=== PATIENT | female | born 1975 | race Caucasian/White ===

== ENCOUNTER 2018-10-22 18:39 | Emergency (ER) | payer BC ==
[2018-10-22 19:43] VITALS: TEMP 98
[2018-10-22 21:15] VITALS: RESP 18
[2018-10-22] MEDS ORDERED: ONDANSETRON 4 MG/2 ML VIAL IVP STA (21:18)
[2018-10-22] MEDS ORDERED: KETOROLAC 30 MG/ML 1 ML VIAL IVP STA (21:18)
[2018-10-22] MEDS ORDERED: SODIUM CHLORIDE 0.9% 1,000 ML IV STA (21:18)
[2018-10-22] MEDS ORDERED: HYDROmorphone 0.5 MG/0.5 ML SYRINGE IVP STA (21:18)
--- NOTE | 2018-10-22 21:35 | ED ---
Abdominal Pain HPI - General Chief Complaint: Abdominal Pain Stated Complaint: Poss appendicitis Time Seen by Provider: 10/22/18 20:19 Source: patient Mode of arrival: ambulatory Limitations: no limitations - History of Present Illness Initial Comments: 43-year-old female patient presents to the emergency department today for evaluation of right lower quadrant abdominal pain. Patient states this started this afternoon around 4:30. States that she did have some mild intermittent pain a couple of days ago but it completely resolved. Patient states that this pain today is sharp, stabbing, and tends. Patient states that radiates into the right groin into the right anterior thigh. States it does worsen with movement and pressing over the area. States that she has been chilled but denies fever. Denies any nausea or vomiting. Denies any hematuria, dysuria, urinary frequency, urinary urgency. States that she does have constipation generally. Denies any history of abdominal surgery. Patient denies any recent rash, shortness breath, chest pain, back pain, numbness, tingling, dizziness, weakness, headache, visual changes, or any other complaints. - Related Data Home Medications Medication Instructions Recorded Confirmed buPROPion XL [Wellbutrin Xl] 150 mg PO DAILY 10/22/18 10/22/18 Previous Rx's Medication Instructions Recorded Ibuprofen [Motrin] 600 mg PO Q8HR PRN #30 tab 10/22/18 Ondansetron [Zofran ODT] 4 mg PO Q8HR PRN #10 tab 10/22/18 Allergies Allergy/AdvReac Type Severity Reaction Status Date / Time No Known Allergies Allergy Verified 10/22/18 20:13 Review of Systems ROS Statement: Those systems with pertinent positive or pertinent negative responses have been documented in the HPI. ROS Other: All systems not noted in ROS Statement are negative. Past Medical History Past Medical History: No Reported History History of Any Multi-Drug Resistant Organisms: None Reported Past Surgical History: Tonsillectomy, Tubal Ligation, Uterine Ablation Past Psychological History: Depression Smoking Status: Former smoker Past Alcohol Use History: None Reported Past Drug Use History: Marijuana General Exam Limitations: no limitations General appearance: alert, in no apparent distress, other (Physical well- developed, well-nourished adult female patient in no acute distress. Vital signs upon presentation are temperature 98.0F, pulse 80, respirations 16, blood pressure 120/82, pulse ox 100% on room air.) Eye exam: Present: normal appearance, PERRL, EOMI. Absent: scleral icterus, conjunctival injection, periorbital swelling ENT exam: Present: normal exam, normal oropharynx, mucous membranes moist Respiratory exam: Present: normal lung sounds bilaterally. Absent: respiratory distress, wheezes, rales, rhonchi, stridor Cardiovascular Exam: Present: regular rate, normal rhythm, normal heart sounds. Absent: systolic murmur, diastolic murmur, rubs, gallop, clicks GI/Abdominal exam: Present: soft, tenderness (Right lower quadrant tenderness), normal bowel sounds. Absent: distended, guarding, rebound, rigid Back exam: Present: normal inspection. Absent: CVA tenderness (R), CVA tenderness (L) Neurological exam: Present: alert, oriented X3, CN II-XII intact Psychiatric exam: Present: normal affect, normal mood Skin exam: Present: warm, dry, intact, normal color. Absent: rash Course Vital Signs 10/22/18 10/22/18 10/22/18 19:40 21:00 22:30 Temperature 98 F Pulse Rate 80 69 92 Respiratory 16 18 18 Rate Blood Pressure 120/82 105/70 100/61 O2 Sat by Pulse 100 99 100 Oximetry Medical Decision Making - Medical Decision Making 43-year-old female patient presented to the emergency department today for evaluation of right lower quadrant abdominal pain. Physical examination did reveal right lower quadrant tenderness. No CVA tenderness. Labs reviewed and did reveal mildly elevated white blood cell count at 10.9. Given concern for appendicitis. Did perform CT abdomen and pelvis with contrast. Did review this result and showed no evidence for acute appendicitis. There was however evidence for multiple cystic lesions to the bilateral adnexa and possible uterine fibroid. Did discuss this finding with the patient. She does have an history of endometriosis there is concern that this could be related. She'll be discharged to follow-up with her search marketing specialist for further evaluation. She' ll be given anti-inflammatory pain medication nausea medication as a prescription. Return parameters were discussed in detail. She verbalizes understanding and agrees this plan. - Lab Data Result diagrams: 10/22/18 20:20 10/22/18 20:20 Lab Results 10/22/18 10/22/18 10/22/18 Range/Units 20:20 20:20 20:20 WBC 10.9 H (3.8-10.6) k/uL RBC 4.56 (3.80-5.40) m/uL Hgb 13.6 (11.4-16.0) gm/dL Hct 41.5 (34.0-46.0) % MCV 91.0 (80.0-100.0) fL MCH 29.9 (25.0-35.0) pg MCHC 32.8 (31.0-37.0) g/dL RDW 12.4 (11.5-15.5) % Plt Count 191 (150-450) k/uL Neutrophils % 77 % Lymphocytes % 17 % Monocytes % 3 % Eosinophils % 1 % Basophils % 1 % Neutrophils # 8.3 H (1.3-7.7) k/uL Lymphocytes # 1.8 (1.0-4.8) k/uL Monocytes # 0.3 (0-1.0) k/uL Eosinophils # 0.1 (0-0.7) k/uL Basophils # 0.1 (0-0.2) k/uL Sodium 139 (137-145) mmol/L Potassium 3.9 (3.5-5.1) mmol/L Chloride 105 (98-107) mmol/L Carbon Dioxide 23 (22-30) mmol/L Anion Gap 11 mmol/L BUN 17 (7-17) mg/dL Creatinine 0.86 (0.52-1.04) mg/dL Est GFR (CKD-EPI)AfAm >90 (>60 ml/min/1.73 sqM) Est GFR (CKD-EPI)NonAf 85 (>60 ml/min/1.73 sqM) Glucose 90 (74-99) mg/dL Plasma Lactic Acid Moses 1.6 (0.7-2.0) mmol/L Calcium 9.2 (8.4-10.2) mg/dL Total Bilirubin 0.5 (0.2-1.3) mg/dL AST 21 (14-36) U/L ALT 26 (9-52) U/L Alkaline Phosphatase 70 (38-126) U/L Total Protein 8.0 (6.3-8.2) g/dL Albumin 4.6 (3.5-5.0) g/dL Amylase 105 (30-110) U/L Lipase 92 (23-300) U/L Urine Color Urine Appearance (Clear) Urine pH (5.0-8.0) Ur Specific [place] (1.001-1.035) Urine Protein (Negative) Urine Glucose (UA) (Negative) Urine Ketones (Negative) Urine Blood (Negative) Urine Nitrite (Negative) Urine Bilirubin (Negative) Urine Urobilinogen (<2.0) mg/dL Ur Leukocyte Esterase (Negative) 10/22/18 Range/Units 21:40 WBC (3.8-10.6) k/uL RBC (3.80-5.40) m/uL Hgb (11.4-16.0) gm/dL Hct (34.0-46.0) % MCV (80.0-100.0) fL MCH (25.0-35.0) pg MCHC (31.0-37.0) g/dL RDW (11.5-15.5) % Plt Count (150-450) k/uL Neutrophils % % Lymphocytes % % Monocytes % % Eosinophils % % Basophils % % Neutrophils # (1.3-7.7) k/uL Lymphocytes # (1.0-4.8) k/uL Monocytes # (0-1.0) k/uL Eosinophils # (0-0.7) k/uL Basophils # (0-0.2) k/uL Sodium (137-145) mmol/L Potassium (3.5-5.1) mmol/L Chloride (98-107) mmol/L Carbon Dioxide (22-30) mmol/L Anion Gap mmol/L BUN (7-17) mg/dL Creatinine (0.52-1.04) mg/dL Est GFR (CKD-EPI)AfAm (>60 ml/min/1.73 sqM) Est GFR (CKD-EPI)NonAf (>60 ml/min/1.73 sqM) Glucose (74-99) mg/dL Plasma Lactic Acid Moses (0.7-2.0) mmol/L Calcium (8.4-10.2) mg/dL Total Bilirubin (0.2-1.3) mg/dL AST (14-36) U/L ALT (9-52) U/L Alkaline Phosphatase (38-126) U/L Total Protein (6.3-8.2) g/dL Albumin (3.5-5.0) g/dL Amylase (30-110) U/L Lipase (23-300) U/L Urine Color Yellow Urine Appearance Clear (Clear) Urine pH 5.5 (5.0-8.0) Ur Specific [place] 1.025 (1.001-1.035) Urine Protein Negative (Negative) Urine Glucose (UA) Negative (Negative) Urine Ketones 2+ H (Negative) Urine Blood Negative (Negative) Urine Nitrite Negative (Negative) Urine Bilirubin Negative (Negative) Urine Urobilinogen <2.0 (<2.0) mg/dL Ur Leukocyte Esterase Negative (Negative) - Radiology Data Radiology results: report reviewed, image reviewed CT abdomen and pelvis with contrast was obtained. Report was reviewed in its entirety. Impression by Dr. Meneses shows no evidence for bowel obstruction or definitive focal inflammation. No evidence for appendicitis. Heterogenous uterus with nonspecific peripheral cystic lesion. Query fibroids. Bilateral adnexal cystic present, possibly functional/physiologic. There is also mild free fluid in the pelvis which could be physiologic. Disposition Clinical Impression: Ovarian cyst, Pelvic pain Disposition: HOME SELF-CARE Condition: Good Instructions (If sedation given, give patient instructions): Ovarian Cyst (ED) , Pelvic Pain in Women (ED) Additional Instructions: Take medications as directed. Follow-up with your search marketing specialist for further evaluation as soon as possible. Return to the emergency department immediately for any new, worsening, or concerning symptoms. Prescriptions: Ibuprofen [Motrin] 600 mg PO Q8HR PRN #30 tab PRN Reason: Pain Ondansetron [Zofran ODT] 4 mg PO Q8HR PRN #10 tab PRN Reason: Nausea Is patient prescribed a controlled substance at d/c from ED?: No Referrals: None,Stated [Primary Care Provider] - 1-2 days Time of Disposition: 23:19
[2018-10-22 21:38] LABS: Basophils # (A) 0.1 k/uL (0-0.2); Basophils % (A) 1 %; Eosinophils # (A) 0.1 k/uL (0-0.7); Eosinophils % (A) 1 %; HCT 41.5 % (34.0-46.0); HGB 13.6 gm/dL (11.4-16.0); Lymphocytes # (A) 1.8 k/uL (1.0-4.8); Lymphocytes % (A) 17 %; MCH 29.9 pg (25.0-35.0); MCHC 32.8 g/dL (31.0-37.0); Mean Platelet Volume 7.8; Monocytes # (A) 0.3 k/uL (0-1.0); Monocytes % (A) 3 %; Neutrophils # (A) 8.3 k/uL (1.3-7.7); Neutrophils % (A) 77 %; Platelet Count 191 k/uL (150-450); RBC 4.56 m/uL (3.80-5.40); RDW 12.4 % (11.5-15.5); WBC 10.9 k/uL (3.8-10.6)
[2018-10-22 21:47] LABS: ALT 26 U/L (9-52); AST 21 U/L (14-36); Albumin 4.6 g/dL (3.5-5.0); Alkaline Phosphatase 70 U/L (38-126); Amylase 105 U/L (30-110); Anion Gap 11 mmol/L; Blood Urea Nitrogen 17 mg/dL (7-17); Calcium 9.2 mg/dL (8.4-10.2); Carbon Dioxide 23 mmol/L (22-30); Chloride 105 mmol/L (98-107); Glucose 90 mg/dL (74-99); Lipase 92 U/L (23-300); Potassium 3.9 mmol/L (3.5-5.1); Sodium 139 mmol/L (137-145); Total Bilirubin 0.5 mg/dL (0.2-1.3)
[2018-10-22 21:49] LABS: Appearance,Urine Clear (Clear); Bilirubin,Urine Negative (Negative); Blood,Urine Negative (Negative); Color,Urine Yellow; Glucose,Urine (UA) Negative (Negative); Ketones,Urine 2+ (Negative); Leukocyte Esterase,Urine Negative (Negative); Nitrite,Urine Negative (Negative); PH, Urine 5.5 (5.0-8.0); Protein,Urine Negative (Negative); Specific Gravity,Urine 1.025 (1.001-1.035); Urobilinogen,Urine <2.0 mg/dL (<2.0)
--- NOTE | 2018-10-22 22:33 | CT ---
EXAM: CT Abdomen and Pelvis With Intravenous Contrast CLINICAL HISTORY: ITS.REASON CT Reason: abdominal pain TECHNIQUE: Axial computed tomography images of the abdomen and pelvis with intravenous contrast. CTDI is 7.3 mGy and DLP is 598.9 mGy-cm. This CT exam was performed using one or more of the following dose reduction techniques: automated exposure control, adjustment of the mA and/or kV according to patient size, and/or use of iterative reconstruction technique. Coronal and sagittal reformatted images were created and reviewed. COMPARISON: No relevant prior studies available. FINDINGS: Lung bases: Unremarkable. No mass. No consolidation. ABDOMEN: Liver: Unremarkable. No mass. Gallbladder and bile ducts: Unremarkable. No calcified stones. No ductal dilation. Pancreas: Unremarkable. No mass. No ductal dilation. Spleen: Unremarkable. No splenomegaly. Adrenals: Unremarkable. No mass. Kidneys and ureters: Left renal cyst measuring 7 mm. No hydronephrosis on either side. Stomach and bowel: Moderate colonic stool. No evidence for focal colonic inflammation. The small bowel demonstrates normal course and caliber. A few nonspecific central fluid levels are present which may be transient. Stomach is mostly contracted, limitedly characterized. No mucosal thickening. PELVIS: Appendix: No findings to suggest acute appendicitis. Bladder: Unremarkable. No mass. Reproductive: Bilateral adnexal cystic lesions, one with slight peripheral enhancement on the right which may represent a corpus albicans measuring 13 mm. Dominant left ovarian cyst noted measuring 2.4 cm. Small adnexal calcifications are present. There is slight heterogeneity of the uterus with cystic focus extending into the left cornu measuring 17 mm. ABDOMEN and PELVIS: Intraperitoneal space: Mild pelvic free fluid. No free air. Bones/joints: No acute fracture. No dislocation. Soft tissues: Unremarkable. Vasculature: Unremarkable. No abdominal aortic aneurysm. Lymph nodes: Unremarkable. No enlarged lymph nodes. IMPRESSION: 1. No evidence for bowel obstruction or definitive focal inflammation. No evidence for appendicitis. 2. Heterogeneous uterus with nonspecific peripheral cystic lesion. Query fibroids. Bilateral adnexal cysts are present, possibly functional/physiologic. There is also mild free fluid in the pelvis which could be physiologic.
[2018-10-22 22:41] VITALS: BP 100/61; PULSE 92
[2018-10-22] MEDS ORDERED: ACET/COD 300 MG/30 MG STARTER PACK 6 TAB BTL PO STA (23:18)
[2018-10-22] MEDS ORDERED: IBUPROFEN 600 MG STARTER PACK 4 TAB BTL PO STA (23:18)
== END 2018-10-22 23:33 | disposition home or self-care (01) ==
LOC: EC 18:39
DX: N83.202 Unspecified ovarian cyst, left side (principal); N83.201 Unspecified ovarian cyst, right side; F32.9 Major depressive disorder, single episode, unspecified; Z79.899 Other long term (current) drug therapy; Z87.891 Personal history of nicotine dependence
CPT/HCPCS: 36415; 74177; 80053; 81003; 82150; 83605; 83690; 85025; 87040; 96361; 96374; 96375; 99284

== ENCOUNTER → 2022-05-10 | Outpatient (CLI) | payer OTHER ==
[2022-05-10 13:51] VITALS: BP 127/82; PULSE 76; RESP 17; TEMP 97.8
--- NOTE | 2022-05-10 14:07 | P.GSHP ---
History of Present Illness H&P Date: 05/10/22 Chief Complaint: intraductal papilloma Kina is a 47 year old white female seen in consultation for Dr. Guerrero regarding the radiographic abnormality in her right breast. [place] [address] after which additional views of the right breast were recommended. No lesions of concern were noted in the left breast. [place] [address], as well as an ultrasound of the right breast. Completion of workup revealed a 7 x 4 mm ill- defined solid lesion at the 6:00 retrograde area over area of the right breast as well as some cystic changes. The solid lesion was recommended for core biopsy was performed was performed and [address]21 and pathology revealed an intraductal papilloma. The patient does feel any lumps masses or nodules of concern. She is not complaining of any nipple discharge or skin changes. She has not had any recent trauma or infection in the breast. She had a right mole removed from the right breast in the remote past which was not cancer. Caffeine: 2 cups/day nicotine; none chocolate: occasional BCP: depoprovera for 11 years, until 2018 then she had a hysterectomy took both ovaries done for endometriosis hormones: takes estradial pill since hysterectomy Family History: none for cancer Hormonal History: menarche: 14 , age at first : 22; breast fed: yes EAMON: 44, on estradiol done for endometirosis Surgical history: uterine ablation and tubaligation prior to hysterectomy Total abdominal hysterectomy Left carpal tunnel Tonsillectomy Medical History: ? asthma Social History: nicotine: none alcohol: none drugs: Marijuana weekly; recreation - Constitutional Constitutional: Denies chills, Denies fever - EENT Eyes: denies blurred vision, denies pain Ears: deny: decreased hearing, tinnitus Ears, nose, mouth and throat: Denies headache, Denies sore throat - Breasts Breasts: bilateral: as per HPI - Cardiovascular Cardiovascular: Denies chest pain, Denies shortness of breath - Respiratory Respiratory: Reports as per HPI - Gastrointestinal Gastrointestinal: Reports constipation, Denies abdominal pain, Denies diarrhea, Denies nausea, Denies vomiting - Genitourinary (Female) Genitourinary: Denies dysuria, Denies hematuria - Menstruation Menstruation: Reports post hysterectomy - Musculoskeletal Musculoskeletal: Denies myalgias - Integumentary Integumentary: Denies pruritus, Denies rash - Neurological Neurological: Denies numbness, Denies weakness - Psychiatric Psychiatric: Reports anxiety, Denies depression - Endocrine Endocrine: Denies fatigue, Denies weight change - Hematologic/Lymphatic Comment: none - Allergic/Immunologic Allergic/Immunologic: Reports seasonal allergies Past Medical History Past Medical History: No Reported History History of Any Multi-Drug Resistant Organisms: None Reported Past Surgical History: Hysterectomy, Tonsillectomy, Tubal Ligation, Uterine Ablation Past Anesthesia/Blood Transfusion Reactions: No Reported Reaction Past Psychological History: Depression Smoking Status: Former smoker Past Alcohol Use History: None Reported Past Drug Use History: Marijuana Medications and Allergies Home Medications Medication Instructions Recorded Confirmed Type buPROPion XL [Wellbutrin Xl] 150 mg PO DAILY 10/22/18 05/10/22 History estradioL [Estradiol] 0.05 mg PO DAILY 05/10/22 05/10/22 History Allergies Allergy/AdvReac Type Severity Reaction Status Date / Time No Known Allergies Allergy Verified 05/10/22 13:45 Surgical - Exam Vital Signs Temp Pulse Resp BP Pulse Ox 97.8 F 76 17 127/82 98 05/10/22 13:46 05/10/22 13:46 05/10/22 13:46 05/10/22 13:46 05/10/22 13:46 BMI: 25.7 - General no distress - Eyes normal ocular movement - Neck trachea midline - Respiratory normal respiratory effort, clear to auscultation - Cardiovascular Rhythm: regular Heart Sounds: normal: S1, S2 - Abdomen Abdomen: soft, non tender, no guarding, no rigid, no rebound - Integumentary normal turgor - Neurologic no disoriented, no combative - Musculoskeletal normal gait - Psychiatric oriented to time, oriented to person, oriented to place, speech is normal, memory intact Breast Exam: BRA: 34B Inspection: Bilateral grade 2 ptosis Palpation: Right breast: Multi-positional exam fibrocystic changes no discrete dominant masses or nodules of concern Right axilla: No adenopathy of concern Left breast: Multiple positional exam fibrocystic changes no dominant masses or nodules of concern Left axilla: No adenopathy of concern Results Mammogram and ultrasound reviewed with Dr. Gonzalez, 7 mm area in the retroareolar region on the right with biopsy-proven intraductal papilloma Assessment and Plan Assessment: Impression: Fibrocystic breast changes Biopsy-proven intraductal papilloma right retroareolar region Plan: Right breast needle localization lumpectomy, possible onco-plastic tissue transfer Risks and benefits of the procedure discussed with the patient and her . Risks include but are not limited to bleeding, infection, reaction to the anesthetic. The possibility of the needle slipping and not getting the correct areas also discussed. They understand and wish to proceed. CC: DR. Guerrero
== END ==
LOC: WWCWWP 13:41
PROVIDERS: ATTEND Surgery
DX: N60.11 Diffuse cystic mastopathy of right breast (principal); N60.12 Diffuse cystic mastopathy of left breast; D24.1 Benign neoplasm of right breast; Z87.891 Personal history of nicotine dependence

== ENCOUNTER 2022-07-02 08:07 | Day surgery (SDC) | payer OTHER ==
[2022-06-27 09:01] VITALS: BMI 26.5
--- NOTE | 2022-06-28 16:26 | P.PN ---
Subjective Progress Note Date: 06/28/22 Principal diagnosis: intraductal papilloma Kina is a 47 year old white female seen in consultation for Dr. Guerrero regarding the radiographic abnormality in her right breast. [place] [address] after which additional views of the right breast were recommended. No lesions of concern were noted in the left breast. [place] [address], as well as an ultrasound of the right breast. Completion of workup revealed a 7 x 4 mm ill- defined solid lesion at the 6:00 retrograde area over area of the right breast as well as some cystic changes. The solid lesion was recommended for core biopsy was performed was performed [place] [address]93 and pathology revealed an intraductal papilloma. The patient does feel any lumps masses or nodules of concern. She is not complaining of any nipple discharge or skin changes. She has not had any recent trauma or infection in the breast. She had a right mole removed from the right breast in the remote past which was not cancer. Caffeine: 2 cups/day nicotine; none chocolate: occasional BCP: depoprovera for 11 years, until 2018 then she had a hysterectomy took both ovaries done for endometriosis hormones: takes estradial pill since hysterectomy Family History: none for cancer Hormonal History: menarche: 14 , age at first : 22; breast fed: yes EAMON: 44, on estradiol done for endometirosis Surgical history: uterine ablation and tubaligation prior to hysterectomy Total abdominal hysterectomy Left carpal tunnel Tonsillectomy Medical History: ? asthma Social History: nicotine: none alcohol: none drugs: Marijuana weekly; recreation - Constitutional Constitutional: Denies chills, Denies fever - EENT Eyes: denies blurred vision, denies pain Ears: deny: decreased hearing, tinnitus Ears, nose, mouth and throat: Denies headache, Denies sore throat - Breasts Breasts: bilateral: as per HPI - Cardiovascular Cardiovascular: Denies chest pain, Denies shortness of breath - Respiratory Respiratory: Reports as per HPI - Gastrointestinal Gastrointestinal: Reports constipation, Denies abdominal pain, Denies diarrhea, Denies nausea, Denies vomiting - Genitourinary (Female) Genitourinary: Denies dysuria, Denies hematuria - Menstruation Menstruation: Reports post hysterectomy - Musculoskeletal Musculoskeletal: Denies myalgias - Integumentary Integumentary: Denies pruritus, Denies rash - Neurological Neurological: Denies numbness, Denies weakness - Psychiatric Psychiatric: Reports anxiety, Denies depression - Endocrine Endocrine: Denies fatigue, Denies weight change - Hematologic/Lymphatic Comment: none - Allergic/Immunologic Allergic/Immunologic: Reports seasonal allergies Past Medical History Past Medical History: No Reported History History of Any Multi-Drug Resistant Organisms: None Reported Past Surgical History: Hysterectomy, Tonsillectomy, Tubal Ligation, Uterine Ablation Past Anesthesia/Blood Transfusion Reactions: No Reported Reaction Past Psychological History: Depression Smoking Status: Former smoker Past Alcohol Use History: None Reported Past Drug Use History: Marijuana Medications and Allergies Home Medications Medication Instructions Recorded Confirmed Type buPROPion XL [Wellbutrin Xl] 150 mg PO DAILY 10/22/18 05/10/22 History estradioL [Estradiol] 0.05 mg PO DAILY 05/10/22 05/10/22 History Allergies Allergy/AdvReac Type Severity Reaction Status Date / Time No Known Allergies Allergy Verified 05/10/22 13:45 Objective - Vital Signs Vital signs: Intake & Output 06/27/22 06/28/22 06/28/22 18:59 06:59 18:59 Weight 68.039 kg - Exam BMI 26.6 - Constitutional General appearance: Present: cooperative - EENT Eyes: Present: EOMI ENT: Present: hearing grossly normal - Neck Neck: Present: normal ROM - Respiratory Respiratory: bilateral: CTA - Cardiovascular Heart sounds: normal: S1, S2 - Gastrointestinal General gastrointestinal: Present: soft - Integumentary Integumentary: Present: normal turgor - Musculoskeletal Musculoskeletal: Present: gait normal - Psychiatric Psychiatric: Present: A&O x's 3, appropriate affect, intact judgment & insight - Additional findings Additional findings: Breast Exam: BRA: 34B Inspection: Bilateral grade 2 ptosis Palpation: Right breast: Multi-positional exam fibrocystic changes no discrete dominant masses or nodules of concern Right axilla: No adenopathy of concern Left breast: Multiple positional exam fibrocystic changes no dominant masses or nodules of concern Left axilla: No adenopathy of concern Assessment and Plan Assessment: Results Mammogram and ultrasound reviewed with Dr. Gonzalez, 7 mm area in the retroareolar region on the right with biopsy-proven intraductal papilloma Assessment and Plan Assessment: Impression: Fibrocystic breast changes Biopsy-proven intraductal papilloma right retroareolar region Plan: Right breast needle localization lumpectomy, possible onco-plastic tissue transfer Risks and benefits of the procedure discussed with the patient and her . Risks include but are not limited to bleeding, infection, reaction to the anesthetic. The possibility of the needle slipping and not getting the correct areas also discussed. They understand and wish to proceed. CC: DR. Guerrero Additional CC's: Chandrakant Guerrero
[~2022-07-02 08:07] MED LIST: HEPARIN SODIUM,PORCINE/PF 5,000 UNIT/0.5 ML SYRINGE SQ PRN; Pre Op ABX Message 1 EACH MISC MISCELLANE ONE
[2022-07-02] MEDS ORDERED: DEXAMETHASONE SOD PHOSPHATE 4 MG/ML 1 ML VIAL IV ONE (08:57)
[2022-07-02] MEDS ORDERED: LIDOCAINE 1% (10MG/ML) FOR IV START INTRADERMA PRN (08:57)
[2022-07-02] MEDS ORDERED: ONDANSETRON 4 MG/2 ML VIAL IVP ONE (08:57)
[2022-07-02] MEDS ORDERED: SCOPOLAMINE 1 MG/72 HR PATCH TRANSDERM ONE (08:57)
[2022-07-02] MEDS ORDERED: LACTATED RINGERS 1,000 ML IV SCH (08:57)
[2022-07-02] MEDS ORDERED: HYDROmorphone 0.5 MG/0.5 ML SYRINGE IVP PRN (08:57)
[2022-07-02] MEDS ORDERED: ALPRAZolam 0.5 MG TAB ONE (09:09)
[2022-07-02] MEDS ORDERED: LIDOCAINE 1% INJ 10MG/ML (30 ML VIAL-PF) SQ ONE (10:32)
[2022-07-02] MEDS ORDERED: LIDOCAINE 2% INJ 20 MG/ML (2 ML VIAL) ONE (11:40)
[2022-07-02] MEDS ORDERED: PROPOFOL 10 MG/ML 20 ML VIAL IV ONE (11:40)
[2022-07-02] MEDS ORDERED: PHENYLEPHRINE-0.9% NACL SYG 1,000 MCG/10 ML SYRINGE ONE (11:40)
[2022-07-02] MEDS ORDERED: fentaNYL (PF) 50 MCG/ML 2 ML AMP ONE (11:40)
[2022-07-02] MEDS ORDERED: MIDAZOLAM 2 MG/2 ML VIAL ONE (11:40)
[2022-07-02] MEDS ORDERED: LIDOCAINE 2% INJ 20 MG/ML SQ ONE (12:59)
--- NOTE | 2022-07-02 13:23 | P.OP ---
Date of Procedure: 07/02/22 Preoperative Diagnosis: Intraductal papilloma right breast Postoperative Diagnosis: Same Procedure(s) Performed: needle localization excision of intraductal papilloma Anesthesia: ROMEOA Surgeon: Krupa Yee Estimated Blood Loss (ml): 5 IV fluids (ml): 500 Pathology: other (Breast tissue) Condition: stable Disposition: same day Indications for Procedure: Intraductal papilloma right breast Operative Findings: Dense breast tissue Description of Procedure: The patient had a prior right breast core biopsy which was positive for intraductal papilloma. She underwent needle localization of the area of concern. She was then brought to the operative suite. Following induction of anesthesia the right breast was prepped and draped in a sterile fashion. An incision was made and carried down to the hook of the needle. Surrounding tissue was excised. Wound was well irrigated. After assured that hemostasis was attained the deep tissues were closed using 3-0 Vicryl suture. This was after titanium clips had been placed. The subcutaneous tissue was closed using 3-0 Vicryl suture. The skin was closed using 4-0 Monocryl. The patient tolerated the procedure in stable condition.
--- NOTE | 2022-07-02 13:26 | P.DS ---
Providers Attending physician: Krupa Yee Primary care physician: Chandrakant Guerrero Plan - Discharge Summary Discharge Rx Participant: Yes New Discharge Prescriptions: No Action buPROPion XL [Wellbutrin Xl] 150 mg PO QAM estradioL [Estradiol] 0.05 mg PO QAM Budesonide-Formot 160-4.5 Mcg [Symbicort 160-4.5 Mcg Inhaler] 1 puff PO QAM Discharge Medication List buPROPion XL [Wellbutrin Xl] 150 mg PO QAM 10/22/18 [History] Budesonide-Formot 160-4.5 Mcg [Symbicort 160-4.5 Mcg Inhaler] 1 puff PO QAM 05/10/22 [History] estradioL [Estradiol] 0.05 mg PO QAM 05/10/22 [History] Follow up Appointment(s)/Referral(s): Krupa Yee MD [STAFF PHYSICIAN] - 07/11/22 3:00 pm Patient Instructions/Handouts: *Surgery [facility] - Scopalamine Patch Instructions Activity/Diet/Wound Care/Special Instructions: Do not drive for 24 hours after discharge or if taking narcotic pain medication wear surgical bra at all times May shower after 48 hours Discharge Disposition: HOME SELF-CARE
[2022-07-02 13:56] VITALS: TEMP 96.9
[2022-07-02 14:40] VITALS: RESP 18
[2022-07-02] MEDS ORDERED: HYDROcodone/APAP 5-325MG 1 EACH TAB ONE (14:44)
[2022-07-02] MEDS ORDERED: HYDROcodone/APAP 5-325MG 1 EACH TAB PO ONE (14:45)
[2022-07-02 14:54] VITALS: BP 107/74; PULSE 88
== END 2022-07-02 15:32 | disposition home or self-care (01) ==
LOC: OR 08:07
PROVIDERS: ATTEND Surgery
DX: N60.11 Diffuse cystic mastopathy of right breast (principal); J45.909 Unspecified asthma, uncomplicated; F32.A Depression, unspecified; F12.90 Cannabis use, unspecified, uncomplicated; Z90.710 Acquired absence of both cervix and uterus; Z90.89 Acquired absence of other organs; Z98.51 Tubal ligation status; Z87.891 Personal history of nicotine dependence
CPT/HCPCS: 76098; 19281; C1819; J2250; J1100; J2405; J2001 ×2; J3010; J2370; J2704; J1644; 88307

== ENCOUNTER → 2022-07-11 | Outpatient (CLI) | payer OTHER ==
[2022-07-11 15:15] VITALS: BP 119/78; PULSE 101; RESP 17; TEMP 98.3
--- NOTE | 2022-07-11 15:38 | P.PN ---
Progress Note - Text Progress Note Date: 07/11/22 Kina is a 47 year old white female status post right breast lumpectomy on 07-02-22. Her pathology was benign. Examination: Incision: Clean and dry Impression: No evidence of residual papillary neoplasia Plan: The peak right breast mammogram in 6 months with physician exam at that time CC: DR. Lockhart
== END | disposition home or self-care (01) ==
LOC: WWCWWP 14:52
PROVIDERS: ATTEND Surgery
DX: Z53.9 Procedure and treatment not carried out, unspecified reason (principal)

== ENCOUNTER → 2023-01-10 | Outpatient (CLI) | payer OTHER ==
[2023-01-10 11:40] VITALS: BP 117/83; PULSE 83; RESP 16; TEMP 98.2
--- NOTE | 2023-01-10 11:53 | P.PN ---
Subjective Progress Note Date: 01/10/23 Principal diagnosis: surveillance ntraductal papilloma Kina is a 47 year old white female seen in consultation for Dr. Guerrero regarding the radiographic abnormality in her right breast. [place] [address] after which additional views of the right breast were recommended. No lesions of concern were noted in the left breast. [place] [address], as well as an ultrasound of the right breast. Completion of workup revealed a 7 x 4 mm ill- defined solid lesion at the 6:00 retrograde area over area of the right breast as well as some cystic changes. The solid lesion was recommended for core b iopsy was performed was performed and 17193 and pathology revealed an intraductal papilloma. The patient does feel any lumps masses or nodules of concern. She is not complaining of any nipple discharge or skin changes. She has not had any recent trauma or infection in the breast. She had a right mole removed from the right breast in the remote past which was not cancer. She had excision of the area preformed on 07-02-22 without residual papilloma noted[place] [address] which was benign BIRADS 2. Patient is not complaining of any lumps masses or nodules of concern in either breast. Caffeine: 2 cups/day nicotine; none chocolate: occasional BCP: depoprovera for 11 years, until 2018 then she had a hysterectomy took both ovaries done for endometriosis hormones: takes estradial pill since hysterectomy Family History: none for cancer Hormonal History: menarche: 14 , age at first : 22; breast fed: yes EAMON: 44, on estradiol done for endometirosis Surgical history: uterine ablation and tubaligation prior to hysterectomy Total abdominal hysterectomy Left carpal tunnel Tonsillectomy Medical History: ? asthma Social History: nicotine: none alcohol: none drugs: Marijuana weekly; recreation - Constitutional Constitutional: Denies chills, Denies fever - EENT Eyes: denies blurred vision, denies pain Ears: deny: decreased hearing, tinnitus Ears, nose, mouth and throat: Denies headache, Denies sore throat - Breasts Breasts: bilateral: as per HPI - Cardiovascular Cardiovascular: Denies chest pain, Denies shortness of breath - Respiratory Respiratory: Reports as per HPI - Gastrointestinal Gastrointestinal: Reports constipation, Denies abdominal pain, Denies diarrhea, Denies nausea, Denies vomiting - Genitourinary (Female) Genitourinary: Denies dysuria, Denies hematuria - Menstruation Menstruation: Reports post hysterectomy - Musculoskeletal Musculoskeletal: Denies myalgias - Integumentary Integumentary: Denies pruritus, Denies rash - Neurological Neurological: Denies numbness, Denies weakness - Psychiatric Psychiatric: Reports anxiety, Denies depression - Endocrine Endocrine: Denies fatigue, Denies weight change - Hematologic/Lymphatic Comment: none - Allergic/Immunologic Allergic/Immunologic: Reports seasonal allergies Past Medical History Past Medical History: No Reported History History of Any Multi-Drug Resistant Organisms: None Reported Past Surgical History: Hysterectomy, Tonsillectomy, Tubal Ligation, Uterine Ablation Past Anesthesia/Blood Transfusion Reactions: No Reported Reaction Past Psychological History: Depression Smoking Status: Former smoker Past Alcohol Use History: None Reported Past Drug Use History: Marijuana Medications and Allergies Home Medications Medication Instructions Recorded Confirmed Type buPROPion XL [Wellbutrin Xl] 150 mg PO DAILY 10/22/18 05/10/22 History estradioL [Estradiol] 0.05 mg PO DAILY 05/10/22 05/10/22 History Allergies Allergy/AdvReac Type Severity Reaction Status Date / Time No Known Allergies Allergy Verified 05/10/22 13:45 Objective - Vital Signs Vital signs: Vital Signs Temp 98.2 F 01/10/23 11:36 Pulse 83 01/10/23 11:36 Resp 16 01/10/23 11:36 BP 117/83 01/10/23 11:36 Pulse Ox 99 01/10/23 11:36 FiO2 Intake & Output 01/09/23 01/10/23 01/10/23 18:59 06:59 18:59 Weight 64.864 kg - Constitutional General appearance: Present: cooperative - EENT Eyes: Present: EOMI ENT: Present: hearing grossly normal - Neck Neck: Present: normal ROM - Respiratory Respiratory: bilateral: CTA - Cardiovascular Rhythm: regular Heart sounds: normal: S1, S2 - Integumentary Integumentary: Present: normal turgor - Musculoskeletal Musculoskeletal: Present: gait normal - Psychiatric Psychiatric: Present: A&O x's 3, appropriate affect, intact judgment & insight - Additional findings Additional findings: Breast Exam: BRA: 34B Inspection: Bilateral grade 2 ptosis, well healed scar right breast from prior biopsy Palpation: Right breast: Multi-positional exam fibrocystic changes no discrete dominant masses or nodules of concern Right axilla: No adenopathy of concern Left breast: Multiple positional exam fibrocystic changes no dominant masses or nodules of concern Left axilla: No adenopathy of concern Assessment and Plan Assessment: mpression: Fibrocystic breast changes status post right breast biopsy, benign 07-02-22; bilateral mammogram on 01-10-23 BIRAD 2, personally reviewed Plan: Bilateral mammogram in 1 year with appointment at that time Patient to follow up sooner any questions or concerns CC: DR. Guerrero
== END ==
LOC: WWCWWP 10:58
PROVIDERS: ATTEND Surgery
DX: N60.12 Diffuse cystic mastopathy of left breast (principal); N60.11 Diffuse cystic mastopathy of right breast; Z87.891 Personal history of nicotine dependence

== ENCOUNTER → 2023-01-10 | Outpatient (CLI) | payer OTHER ==
--- NOTE | 2023-01-10 11:37 | MM ---
Reason for Exam: Follow-up at short interval from prior study. Last screening mammogram was performed 10 month(s) ago. Patient History: Menarche at age 14. First Full-Term at age 21. Hysterectomy at age 43. Postmenopausal. Currently using Estrogen, starting at age 43. 03/15/2002, US biopsy breast VAD RT on the Right side. 07/02/2022, Benign MG pre op needle loc RT on the right side. Risk Values: Jenny 5 year model risk: 1.6%. NCI Lifetime model risk: 11.0%. Prior Study Comparison: 02/21/2022 Bilateral Screening Mammogram, Unknown. 03/04/2022 Right Diagnostic Mammogram, Unknown. Tissue Density: The breast tissue is heterogeneously dense. This may lower the sensitivity of mammography. Findings: Analyzed By CAD. New surgical clips and distortion from interval excisional biopsy right breast are noted. Occasional tiny benign-appearing round calcification in the left breast is redemonstrated. No suspicious new mass or distortion in either breast. Overall Assessment: Benign, BI-RAD 2 Management: Screening Mammogram of both breasts in 1 year. Return to routine follow-up. Results were given to the patient verbally at the time of exam. Patient should continue monthly self-breast exams. A clinical breast exam by your physician is recommended on an annual basis. This exam should not preclude additional follow-up of suspicious palpable abnormalities. Note on Jenny scores and lifetime risk: 1. A Jenny score greater than 3% is considered moderate risk. If this is the case, consider specialist referral to assess eligibility for a risk reducing agent. 2. If overall lifetime risk for the development of breast cancer is 20% or higher, the patient may qualify for future screening with alternating mammogram and breast MRI. Electronically signed and approved by: Alfred Davis M.D.
== END | disposition home or self-care (01) ==
LOC: RADMAMWWP 10:55
PROVIDERS: ATTEND Surgery
DX: R92.8 Other abnormal and inconclusive findings on diagnostic imaging of breast (principal); Z85.3 Personal history of malignant neoplasm of breast; Z78.0 Asymptomatic menopausal state
CPT/HCPCS: 77066; G0279; 77062

== ENCOUNTER 2023-11-17 08:33 | Emergency (ER) | payer OTHER ==
[2023-11-17 09:05] VITALS: TEMP 98.1
--- NOTE | 2023-11-17 09:12 | ED ---
General Adult HPI - General Chief complaint: Shortness of Breath Stated complaint: SOB Time Seen by Provider: 11/17/23 08:45 Source: patient, RN notes reviewed, old records reviewed Mode of arrival: ambulatory Limitations: no limitations - History of Present Illness Initial comments: This is a 48-year-old female who presents to the emergency department stating that she used to be a smoker but quit over 10 years ago. Patient states she does have asthma. Patient states over the last few days she has been having quite a bit of wheezing and she states that started on October 23 after her mother . Patient states over the last couple of days got considerably worse. And she complains of some chest tightness which is typical of her asthma. Patient denies any fever chills. Patient states she does have a cough but it is a dry cough. Patient denies any sore throat. Patient denies any headache patient has numbness weakness. Patient Nuys any diaphoretic episode. Patient has any abdominal pain patient has nausea vomiting diarrhea. - Related Data Home Medications Medication Instructions Recorded Confirmed buPROPion XL [Wellbutrin Xl] 150 mg PO QAM 10/22/18 01/10/23 Budesonide-Formot 160-4.5 Mcg 1 puff PO QAM 05/10/22 01/10/23 [Symbicort 160-4.5 Mcg Inhaler] estradioL [Estradiol] 0.05 mg PO QAM 05/10/22 01/10/23 Previous Rx's Medication Instructions Recorded Ipratropium-Albuterol Nebulize 3 ml INHALATION Q4H #90 ml 11/17/23 [Duoneb 0.5 mg-3 mg/3 ml Soln] predniSONE [Deltasone] 40 mg PO DAILY #8 tab 11/17/23 Allergies Allergy/AdvReac Type Severity Reaction Status Date / Time No Known Allergies Allergy Verified 11/17/23 08:41 Review of Systems ROS Statement: Those systems with pertinent positive or pertinent negative responses have been documented in the HPI. ROS Other: All systems not noted in ROS Statement are negative. Past Medical History Past Medical History: Asthma Additional Past Medical History / Comment(s): Benign right breast lump. History of Any Multi-Drug Resistant Organisms: None Reported Past Surgical History: Hysterectomy, Tonsillectomy, Tubal Ligation, Uterine Ablation Past Anesthesia/Blood Transfusion Reactions: No Reported Reaction Past Psychological History: Depression Smoking Status: Former smoker Past Alcohol Use History: None Reported Past Drug Use History: Marijuana - Past Family History Mother Family Medical History: No Reported History General Exam - General Exam Comments Initial Comments: GENERAL: Patient is well-developed and well-nourished. Patient is nontoxic and well- hydrated and is in mild distress. ENT: Neck is soft and supple. No significant lymphadenopathy is noted. Oropharynx is clear. Moist mucous membranes. Neck has full range of motion without eliciting any pain. EYES: The sclera were anicteric and conjunctiva were pink and moist. Extraocular movements were intact and pupils were equal round and reactive to light. Eyelids were unremarkable. PULMONARY: Unlabored respirations. Good breath sounds bilaterally. Patient has expiratory wheezing diffusely CARDIOVASCULAR: There is a regular rate and rhythm without any murmurs gallops or rubs. ABDOMEN: Soft and nontender with normal bowel sounds. SKIN: Skin is clear with no lesions or rashes and otherwise unremarkable. NEUROLOGIC: Patient is alert and oriented x3. Cranial nerves II through XII are grossly intact. Motor and sensory are also intact. Normal speech, volume and content. Symmetrical smile. MUSCULOSKELETAL: Normal extremities with adequate strength and full range of motion. No lower extremity swelling or edema. No calf tenderness. LYMPHATICS: No significant lymphadenopathy is noted PSYCHIATRIC: Normal psychiatric evaluation. Limitations: no limitations Course Vital Signs 11/17/23 11/17/23 11/17/23 08:39 09:04 09:07 Temperature 98.1 F Pulse Rate 88 87 Respiratory 18 20 20 Rate Blood Pressure 121/86 131/95 O2 Sat by Pulse 98 96 Oximetry 11/17/23 11/17/23 11/17/23 10:44 10:59 11:05 Temperature Pulse Rate 90 85 96 Respiratory 16 Rate Blood Pressure 115/60 O2 Sat by Pulse 98 Oximetry 11/17/23 11:31 Temperature Pulse Rate 110 H Respiratory 20 Rate Blood Pressure 124/84 O2 Sat by Pulse 98 Oximetry Medical Decision Making - Medical Decision Making EKG is interpreted by myself but EKG shows a sinus rhythm at 79 bpm IA 128 QRS is 111 QT interval 355 QTc is 389. Patient's EKG shows no ST segment ovation or depression. Was pt. sent in by a medical professional or institution (, PA, LAST PULLER, urgent care, hospital, or assisted...) When possible be specific @ -No Did you speak to anyone other than the patient for history (EMS, parent, family, police, friend...)? What history was obtained from this source @ -No Did you review nursing and triage notes (agree or disagree)? Why? @ -I reviewed and agree with nursing and triage notes Were old charts reviewed (outside hosp., previous admission, EMS record, old EKG, old radiological studies, urgent care reports/EKG's, assisted records)? Report findings @ -No old charts were reviewed Differential Diagnosis (chest pain, altered mental status, abdominal pain women, abdominal pain men, vaginal bleeding, weakness, fever, dyspnea, syncope, headache, dizziness, GI bleed, back pain, seizure, CVA, palpatations, mental health, musculoskeletal)? @ -Differential Dyspnea: Coronary syndrome, arrhythmia, tamponade, asthma, COPD, pulmonary embolism, pneumonia, pneumothorax, pulmonary effusion, anaphylaxis, diabetic ketoacidosis, flailed chest, pulmonary contusion, diaphragmatic rupture, anemia, neuromuscular, this is not meant to be an all-inclusive list. EKG interpreted by me (3pts min.). @ -As above X-rays interpreted by me (1pt min.). @ -Chest x-ray shows no acute abnormality CT interpreted by me (1pt min.). @ -None done U/S interpreted by me (1pt. min.). @ -None done What testing was considered but not performed or refused? (CT, X-rays, U/S, labs)? Why? @ -None What meds were considered but not given or refused? Why? @ -None Did you discuss the management of the patient with other professionals (professionals i.e. , PA, LAST P[facility]ER, lab, RT, psych nurse, delinquency prevention social worker, recreation facilities supervisor, teacher, psychological operations officer, immigration case manager)? Give summary @ -No Was smoking cessation discussed for >3mins.? @ -No Was critical care preformed (if so, how long)? @ -No Were there social determinants of health that impacted care today? How? (Homelessness, low income, unemployed, alcoholism, drug addiction, transportation, low edu. Level, literacy, decrease access to med. care, longterm, rehab)? @ -No Was there de-escalation of care discussed even if they declined (Discuss DNR or withdrawal of care, Hospice)? DNR status @ -No What co-morbidities impacted this encounter? (DM, HTN, Smoking, COPD, CAD, Cancer, CVA, ARF, Chemo, Hep., AIDS, mental health diagnosis, sleep apnea, morbid obesity)? @ -None Was patient admitted / discharged? Hospital course, mention meds given and route, prescriptions, significant lab abnormalities, going to OR and other pertinent info. @ -Patient received multiple breathing treatments in the emergency department and was feeling much better and I listen to her lungs and the wheezing was still there slightly but much improved. Patient also received steroids in the emergency department. Undiagnosed new problem with uncertain prognosis? @ -No Drug Therapy requiring intensive monitoring for toxicity (Heparin, Nitro, Insuli n, Cardizem)? @ -No Were any procedures done? @ -No Diagnosis/symptom? @ -Asthma exacerbation Acute, or Chronic, or Acute on Chronic? @ -Acute Uncomplicated (without systemic symptoms) or Complicated (systemic symptoms)? @ -Complicated Side effects of treatment? @ -No Exacerbation, Progression, or Severe Exacerbation? @ -No Poses a threat to life or bodily function? How? (Chest pain, [place], [place], pneumonia, PE, COPD, DKA, ARF, appy, cholecystitis, CVA, Diverticulitis, Homicidal, Suicidal, threat to staff... and all critical care pts) @ -No Diagnosis/symptom? @ -Upper respiratory infection Acute, or Chronic, or Acute on Chronic? @ -Acute Uncomplicated (without systemic symptoms) or Complicated (systemic symptoms)? @ -Default Side effects of treatment? @ -None Exacerbation, Progression, or Severe Exacerbation] @ -No Poses a threat to life or bodily function? @ -No - Lab Data Result diagrams: 11/17/23 09:09 11/17/23 09:09 Lab Results 11/17/23 11/17/23 11/17/23 Range/Units 09:09 09:09 09:09 WBC 9.7 (3.8-10.6) k/uL RBC 4.83 (3.80-5.40) m/uL Hgb 14.4 (11.4-16.0) gm/dL Hct 43.6 (34.0-46.0) % MCV 90.1 (80.0-100.0) fL MCH 29.8 (25.0-35.0) pg MCHC 33.1 (31.0-37.0) g/dL RDW 12.6 (11.5-15.5) % Plt Count 193 (150-450) k/uL MPV 7.8 Neutrophils % 74 % Lymphocytes % 14 % Monocytes % 5 % Eosinophils % 6 % Basophils % 0 % Neutrophils # 7.2 (1.3-7.7) k/uL Lymphocytes # 1.3 (1.0-4.8) k/uL Monocytes # 0.5 (0-1.0) k/uL Eosinophils # 0.6 (0-0.7) k/uL Basophils # 0.0 (0-0.2) k/uL PT 9.8 L (10.0-12.5) sec INR 0.9 (<1.2) APTT 26.6 (22.0-30.0) sec Sodium 140 (137-145) mmol/L Potassium 4.8 (3.5-5.1) mmol/L Chloride 107 (98-107) mmol/L Carbon Dioxide 26 (22-30) mmol/L Anion Gap 7 mmol/L BUN 16 (7-17) mg/dL Creatinine 0.85 (0.52-1.04) mg/dL Est GFR (CKD-EPI)AfAm >90 (>60 ml/min/1.73 sqM) Est GFR (CKD-EPI)NonAf 83 (>60 ml/min/1.73 sqM) Glucose 91 (74-99) mg/dL Plasma Lactic Acid Moses (0.7-2.0) mmol/L Calcium 9.8 (8.4-10.2) mg/dL Magnesium 1.9 (1.6-2.3) mg/dL Total Bilirubin 0.8 (0.2-1.3) mg/dL AST 28 (14-36) U/L ALT 18 (4-34) U/L Alkaline Phosphatase 94 (38-126) U/L Troponin I (0.000-0.034) ng/mL Total Protein 7.7 (6.3-8.2) g/dL Albumin 4.2 (3.5-5.0) g/dL Influenza Type A (PCR) (Not Detectd) Influenza Type B (PCR) (Not Detectd) RSV (PCR) (Not Detectd) SARS-CoV-2 (PCR) (Not Detectd) 11/17/23 11/17/23 11/17/23 Range/Units 09:09 09:09 09:10 WBC (3.8-10.6) k/uL RBC (3.80-5.40) m/uL Hgb (11.4-16.0) gm/dL Hct (34.0-46.0) % MCV (80.0-100.0) fL MCH (25.0-35.0) pg MCHC (31.0-37.0) g/dL RDW (11.5-15.5) % Plt Count (150-450) k/uL MPV Neutrophils % % Lymphocytes % % Monocytes % % Eosinophils % % Basophils % % Neutrophils # (1.3-7.7) k/uL Lymphocytes # (1.0-4.8) k/uL Monocytes # (0-1.0) k/uL Eosinophils # (0-0.7) k/uL Basophils # (0-0.2) k/uL PT (10.0-12.5) sec INR (<1.2) APTT (22.0-30.0) sec Sodium (137-145) mmol/L Potassium (3.5-5.1) mmol/L Chloride (98-107) mmol/L Carbon Dioxide (22-30) mmol/L Anion Gap mmol/L BUN (7-17) mg/dL Creatinine (0.52-1.04) mg/dL Est GFR (CKD-EPI)AfAm (>60 ml/min/1.73 sqM) Est GFR (CKD-EPI)NonAf (>60 ml/min/1.73 sqM) Glucose (74-99) mg/dL Plasma Lactic Acid Moses 0.9 (0.7-2.0) mmol/L Calcium (8.4-10.2) mg/dL Magnesium (1.6-2.3) mg/dL Total Bilirubin (0.2-1.3) mg/dL AST (14-36) U/L ALT (4-34) U/L Alkaline Phosphatase (38-126) U/L Troponin I <0.012 (0.000-0.034) ng/mL Total Protein (6.3-8.2) g/dL Albumin (3.5-5.0) g/dL Influenza Type A (PCR) Not Detected (Not Detectd) Influenza Type B (PCR) Not Detected (Not Detectd) RSV (PCR) Not Detected (Not Detectd) SARS-CoV-2 (PCR) Not Detected (Not Detectd) Disposition Clinical Impression: Asthma with acute exacerbation, Upper respiratory infection Disposition: HOME SELF-CARE Instructions (If sedation given, give patient instructions): Asthma (ED), Upper Respiratory Infection (ED) Prescriptions: predniSONE [Deltasone] 40 mg PO DAILY #8 tab Ipratropium-Albuterol Nebulize [Duoneb 0.5 mg-3 mg/3 ml Soln] 3 ml INHALATION Q4H #90 ml Is patient prescribed a controlled substance at d/c from ED?: No Referrals: Chandrakant Guerrero MD [Primary Care Provider] - 1-2 days Time of Disposition: 11:50
[2023-11-17 09:26] LABS: Basophils % (A) 0 %; Eosinophils # (A) 0.6 k/uL (0-0.7); Eosinophils % (A) 6 %; HCT 43.6 % (34.0-46.0); HGB 14.4 gm/dL (11.4-16.0); Lymphocytes # (A) 1.3 k/uL (1.0-4.8); Lymphocytes % (A) 14 %; MCH 29.8 pg (25.0-35.0); MCHC 33.1 g/dL (31.0-37.0); MCV 90.1 fL (80.0-100.0); Mean Platelet Volume 7.8; Monocytes # (A) 0.5 k/uL (0-1.0); Monocytes % (A) 5 %; Neutrophils # (A) 7.2 k/uL (1.3-7.7); Neutrophils % (A) 74 %; Platelet Count 193 k/uL (150-450); RBC 4.83 m/uL (3.80-5.40); RDW 12.6 % (11.5-15.5); WBC 9.7 k/uL (3.8-10.6)
[2023-11-17] MEDS: methylPREDNISolone SOD SUCCI 125 MG/2 ML VIAL IV STA (09:30)
[2023-11-17 09:36] LABS: INR 0.9 (<1.2); Partial Thromboplastin Time 26.6 sec (22.0-30.0); Prothrombin Time 9.8 sec (10.0-12.5)
[2023-11-17 09:39] LABS: ALT 18 U/L (4-34); AST 28 U/L (14-36); African American GFR (CKD) >90 (>60 ml/min/1.73 sqM); Albumin 4.2 g/dL (3.5-5.0); Alkaline Phosphatase 94 U/L (38-126); Anion Gap 7 mmol/L; Blood Urea Nitrogen 16 mg/dL (7-17); Calcium 9.8 mg/dL (8.4-10.2); Carbon Dioxide 26 mmol/L (22-30); Chloride 107 mmol/L (98-107); Glucose 91 mg/dL (74-99); Magnesium 1.9 mg/dL (1.6-2.3); Non-African American GFR(CKD) 83 (>60 ml/min/1.73 sqM); Potassium 4.8 mmol/L (3.5-5.1); Sodium 140 mmol/L (137-145); Total Bilirubin 0.8 mg/dL (0.2-1.3); Total Protein 7.7 g/dL (6.3-8.2)
[2023-11-17 09:41] VITALS: RESP 20
--- NOTE | 2023-11-17 09:59 | XR ---
EXAMINATION TYPE: XR chest 2V DATE OF EXAM: 11/17/2023 9:42 AM CLINICAL INDICATION:Female, 48 years old with history of difficulty breathing; [facility] COMPARISON: None TECHNIQUE: XR chest 2V. Frontal and lateral views of the chest.. FINDINGS: Lines/Tubes/Devices: EKG leads overlie the chest. No indwelling lines are seen. Heart/mediastinum: Heart size is normal. Mediastinum is unremarkable. Pulmonary vascularity: Not increased, Lungs/Pleura: There is no evidence of pleural effusion, focal consolidation, or pneumothorax. Musculoskeletal: No acute osseous abnormality demonstrated in the limits of the exam. Mild degenerat antonella changes of the spine. Other findings: None. IMPRESSION: No acute cardiopulmonary abnormality.
[2023-11-17] MEDS: ALBUTEROL NEBULIZED 2.5 MG/3 ML INHALATION STA (10:42)
[2023-11-17] MEDS: IPRATROPIUM 0.5 MG/2.5 ML NEBU INHALATION STA (10:42)
[2023-11-17 12:12] VITALS: BP 125/86; PULSE 89
== END 2023-11-17 12:03 | disposition home or self-care (01) ==
LOC: EC 08:33
DX: J45.901 Unspecified asthma with (acute) exacerbation (principal); J06.9 Acute upper respiratory infection, unspecified; Z79.51 Long term (current) use of inhaled steroids; Z87.891 Personal history of nicotine dependence
CPT/HCPCS: 36415; 94640; 93005; 80053; 83605; 83735; 84484; 85025; 85610; 85730; 87636; 71046; 99285; 96374; J2930

== ENCOUNTER → 2024-02-05 | Outpatient (CLI) | payer OTHER ==
--- NOTE | 2024-02-10 12:03 | MM ---
Reason for Exam: Screening (asymptomatic). Last mammogram was performed 1 year(s) and 1 month(s) ago. Patient History: Menarche at age 14. First Full-Term at age 21. Left ovary removed at age 43. Right ovary removed at age 43. Hysterectomy at age 43. Postmenopausal. Currently using Estrogen, starting at age 43. 03/15/2002, US biopsy breast VAD RT on the Right side. 07/02/2022, Benign MG pre op needle loc RT on the right side. Risk Values: Jenny 5 year model risk: 1.5%. NCI Lifetime model risk: 10.7%. Prior Study Comparison: 02/21/2022 Bilateral Screening Mammogram, Unknown. 03/04/2022 Right Diagnostic Mammogram, Unknown. 01/10/2023 Bilateral MG 3D diag mammo w/cad [facility], [facility]. Tissue Density: The breasts are heterogeneously dense, which may obscure small masses. Findings: Analyzed By CAD. Right breast surgical clips. Right breast: There is no suspicious group of microcalcifications or new suspicious mass. Left breast: There is no suspicious group of microcalcifications or new suspicious mass. Overall Assessment: Benign, BI-RAD 2 Management: Screening Mammogram of both breasts in [address] [facility] will attempt to contact patient to return for supplemental views and ultrasound if indicated. Patient should continue monthly self-breast exams. A clinical breast exam by your physician is recommended on an annual basis. This exam should not preclude additional follow-up of suspicious palpable abnormalities. Note on Jenny scores and lifetime risk: 1. A Jenny score greater than 3% is considered moderate risk. If this is the case, consider specialist referral to assess eligibility for a risk reducing agent. 2. If overall lifetime risk for the development of breast cancer is 20% or higher, the patient may qualify for future screening with alternating mammogram and breast MRI. Electronically signed and approved by: Mao Silver DO
== END | disposition home or self-care (01) ==
LOC: RADMAMWWP 14:19
PROVIDERS: ATTEND Family Medicine
DX: Z12.31 Encounter for screening mammogram for malignant neoplasm of breast (principal); Z78.0 Asymptomatic menopausal state
CPT/HCPCS: 77063; 77067